=== PATIENT | male | born 1965 | race American Indian/Alaskan Native ===

== ENCOUNTER 2020-03-04 13:24 | Inpatient (IN) | payer OTHER ==
[2020-03-04] MEDS ORDERED: SODIUM CHLORIDE 0.9% 1000 ML 1,000 ML IV ONE ×2 (15:13→17:34)
[2020-03-04] MEDS ORDERED: ONDANSETRON 4 MG/2 ML INJ IV ONE (15:13)
[2020-03-04] MEDS ORDERED: MORPHINE 4 MG/1 ML INJ IV ONE (15:13)
--- NOTE | 2020-03-04 15:33 | Emergency Department Report ---
ED Abdominal Pain HPI - General Chief Complaint: Abdominal Pain Stated Complaint: JUAN JOSE Time Seen by Provider: 03/04/20 15:13 Source: patient Mode of arrival: Wheelchair Limitations: No Limitations - History of Present Illness Initial Comments: Patient is 54 years old male with history of previous multiple abdominal surgeries. Patient stated that he drink some kind of lie approximately 40 years ago and since then he started having abdominal problem. Patient stated that this time is different. He is complaining of diffuse abdominal pain sharp in nature with no radiation. Patient stated that he is nauseated but no vomiting. He stated that he had diarrhea today. Patient denied any fever or chills. MD Complaint: abdominal pain -: week(s) (3) Location: diffuse Radiation: none Migration to: no migration Severity: moderate Severity scale (0 -10): 6 Quality: sharp Consistency: constant - Related Data Allergies Allergy/AdvReac Type Severity Reaction Status Date / Time No Known Allergies Allergy Unverified 03/04/20 14:30 ED Review of Systems ROS: Stated complaint: JUAN JOSE Other details as noted in HPI Comment: All other systems reviewed and negative Constitutional: denies: chills, diaphoresis Respiratory: denies: cough, shortness of breath, SOB with exertion Cardiovascular: denies: chest pain, palpitations Gastrointestinal: abdominal pain, nausea, diarrhea. denies: vomiting, constipation, hematemesis, melena, hematochezia Musculoskeletal: denies: back pain Neurological: denies: headache, weakness, numbness, paresthesias, confusion ED Past Medical Hx - Past Medical History Previous Medical History?: Yes Additional medical history: DYSPHAGIA - Surgical History Past Surgical History?: Yes Additional Surgical History: ABD - Social History Smoking Status: Current Every Day Smoker Substance Use Type: Alcohol ED Physical Exam - General Limitations: No Limitations General appearance: alert, in no apparent distress - Head Head exam: Present: atraumatic, normocephalic, normal inspection - Eye Eye exam: Present: normal appearance - ENT ENT exam: Present: mucous membranes dry - Neck Neck exam: Present: normal inspection, full ROM. Absent: tenderness, meningismus, lymphadenopathy, thyromegaly - Respiratory Respiratory exam: Present: normal lung sounds bilaterally - Cardiovascular Cardiovascular Exam: Present: tachycardia - GI/Abdominal GI/Abdominal exam: Present: soft, distended, tenderness, diminished bowel sounds. Absent: guarding, rebound, rigid, organomegaly, mass, bruit, pulsatile mass, hernia - Extremities Exam Extremities exam: Present: normal inspection, full ROM, normal capillary refill. Absent: tenderness, pedal edema, calf tenderness - Back Exam Back exam: Present: normal inspection, full ROM. Absent: CVA tenderness (R), CVA tenderness (L) - Neurological Exam Neurological exam: Present: alert, oriented X3, CN II-XII intact - Psychiatric Psychiatric exam: Present: normal mood - Skin Skin exam: Present: warm, dry, intact ED Course Vital Signs 03/04/20 03/04/20 14:31 15:31 Temperature 98.8 F 100.2 F H Pulse Rate 121 H 119 H Respiratory 18 16 Rate Blood Pressure 95/73 Blood Pressure 107/77 [Left] O2 Sat by Pulse 93 95 Oximetry ED Medical Decision Making - Lab Data Result diagrams: 03/04/20 15:54 03/04/20 15:54 - Radiology Data Radiology results: report reviewed - Medical Decision Making Patient is 54 years old male with history of previous multiple abdominal surgeries. Patient stated that he drink some kind of lie approximately 40 years ago and since then he started having abdominal problem. Patient stated that this time is different. He is complaining of diffuse abdominal pain sharp in nature with no radiation. Patient stated that he is nauseated but no vomiting. He stated that he had diarrhea today. Patient denied any fever or chills. Labs reviewed and showed a potassium of 3 replaced with 20mEq potassium chloride IV. Patient received normal saline. Patient also received morphine and Zofran for pain and nausea. CT abdomen and pelvis with IV contrast showed a moderate small bowel obstruction most likely secondary to adhesion. I discussed the patient with Dr. Javed who advised to insert an NG tube and keep patient n.p.o. and will follow-up with the patient. I discussed the patient with Dr. Claros, he agreed to admit the patient to medical service for further management. Critical Care Time: Yes Critical care time in (mins) excluding proc time.: 30 Critical care attestation.: If time is entered above; I have spent that time in minutes in the direct care of this critically ill patient, excluding procedure time. ED Disposition Clinical Impression: Abdominal pain, Small bowel obstruction, Acute hypokalemia, Nausea Disposition: OP ADMIT IP TO THIS HOSP Is pt being admited?: Yes Condition: Stable
[2020-03-04] MEDS ORDERED: ACETAMINOPHEN 325 MG TAB PO ONE (15:58)
[2020-03-04 17:07] LABS: Hematocrit 35.2 % (35.5-45.6); Hemoglobin 12.2 gm/dl (11.8-15.2); Mean Corpuscular HGB Conc 35 % (32-34); Mean Corpuscular Volume 96 fl (84-94); Platelet Count 365 K/mm3 (140-440); Red Blood Count 3.65 M/mm3 (3.65-5.03); Red Cell Distribution Width 14.6 % (13.2-15.2)
[2020-03-04 17:32] LABS: Albumin 2.2 g/dL (3.9-5); Bilirubin,Direct 1.2 mg/dL (0-0.2); INR 1.11 (0.87-1.13)
--- NOTE | 2020-03-04 18:14 | Cat Scan Report ---
CT ABDOMEN AND PELVIS WITH CONTRAST INDICATION: abdominal pain. TECHNIQUE: Axial CT images were obtained through the abdomen and pelvis after 100 cc Omnipaque [address] scans at this location are performed using CT dose reduction for ALARA by means of automated exposure control. COMPARISON: None available. 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 LIVER: No significant abnormality. GALLBLADDER: No significant abnormality. BILE DUCTS: No significant abnormality. PANCREAS: No significant abnormality. SPLEEN: No significant abnormality. ADRENALS: No significant abnormality. RIGHT KIDNEY and URETER: No significant abnormality. LEFT KIDNEY and URETER: No significant abnormality. STOMACH and SMALL BOWEL: Moderately dilated fluid-filled loops of small bowel characteristic for dist al small bowel obstruction likely secondary to adhesions. COLON: No significant abnormality. APPENDIX: Not clearly visualized. PERITONEUM: No free fluid. No free air. No fluid collection. LYMPH NODES: No significant adenopathy. AORTA and ARTERIES: No significant abnormality. IVC and VEINS: No significant abnormality. URINARY BLADDER: No significant abnormality. REPRODUCTIVE ORGANS: No significant abnormality. ADDITIONAL FINDINGS: None. SKELETAL SYSTEM: No significant abnormality. IMPRESSION: 1. Moderate grade distal small bowel obstruction. 2. 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
[2020-03-04] MEDS: POTASSIUM CHLORIDE 10 MEQ 10 MEQ/100 ML BAG IV SCH ×2 (18:16→20:43)
--- NOTE | 2020-03-04 18:37 | History and Physical Report ---
History of Present Illness Chief complaint: My stomach hurts History of present illness: 54 YO Male with Nicotine Dependence, ETOH Dependence, Dysphagia presents to ED for evaluation. Patient states he has experienced abdominal pain over the past week 3 weeks with persistent symptoms over the same timeframe. Patient states that pain is 6/10, constant, diffuse, nonradiating, without exacerbating or alleviating factors. Patient acknowledges nausea and diminished oral intake. Patient transported to [facility] via private vehicle for further care and evaluation of the aforementioned symptoms. Patient seen and evaluated in the emergency department. Lab and imaging studies reviewed. Patient underwent CT scan of the abdomen and pelvis which revealed evidence of a small bowel obstruction. Patient also found to have acute kidney injury with acute tubular necrosis, hyponatremia, and hypokalemia. Surgical team consulted in ED. Patient underwent nasogastric tube placement in the emergency department. Patient nay keith in observation status and admitted to surgical floor for further care due to increased risk of worsening symptoms. No prior admission for review. No medication listed at time of admission for reconciliation. Past History Past Medical History: other (See HPI) Past Surgical History: bowel surgery Social history: smoking, alcohol abuse Family history: hypertension Medications and Allergies Allergies Allergy/AdvReac Type Severity Reaction Status Date / Time No Known Allergies Allergy Unverified 03/04/20 14:30 Active Meds: Active Medications Sodium Chloride (Nacl 0.9% 1000 Ml) 1,000 mls @ 999 mls/hr IV BOLUS ONE Stop: 03/04/20 18:34 Last Admin: 03/04/20 18:16 Dose: 999 mls/hr Documented by: Potassium Chloride (Kcl 10meq/100ml) 10 meq in 100 mls @ 100 mls/hr IV Q1H SANDIP Stop: 03/04/20 19:59 Last Admin: 03/04/20 18:16 Dose: 100 mls/hr Documented by: Review of Systems Constitutional: no weight loss, no weight gain, no fever, no chills Ears, nose, mouth and throat: no ear pain, no ear discharge, no tinnitis, no decreased hearing, no nose pain Cardiovascular: no chest pain, no orthopnea, no edema, no syncope Respiratory: no cough, no cough with sputum, no hemoptysis, no shortness of breath Gastrointestinal: abdominal pain, nausea, no vomiting, no diarrhea, no constipation Genitourinary Male: no hematuria, no flank pain, no urinary frequency, no urinary hesitancy, no nocturia Rectal: no pain, no incontinence, no bleeding Musculoskeletal: no neck pain, no arm numbness/tingling, no shooting leg pain Integumentary: no rash, no pruritis, no redness, no wounds, no blisters Neurological: no head injury, no paralysis, no parathesias, no tingling, no seizures (Resolved 0.0 on overall lactulose state) Psychiatric: no anxiety, no change in sleep habits, no insomnia, no change in libido, no suicidal ideation, no disorientation Endocrine: no cold intolerance, no polyphagia, no nocturia, no excessive sweating Hematologic/Lymphatic: no easy bruising Allergic/Immunologic: no wheezing Exam - Constitutional Vitals: Temp Pulse Resp BP Pulse Ox 100.2 F H 119 H 16 107/77 95 03/04/20 15:31 03/04/20 15:31 03/04/20 15:31 03/04/20 15:31 03/04/20 15:31 General appearance: Present: mild distress - EENT Eyes: Present: PERRL ENT: hearing intact, clear oral mucosa - Neck Neck: Present: supple, normal ROM - Respiratory Respiratory effort: normal Respiratory: bilateral: CTA - Cardiovascular Heart Sounds: Present: S1 & S2. Absent: rub, click - Extremities Extremities: pulses symmetrical, No edema Peripheral Pulses: within normal limits - Abdominal General gastrointestinal: Present: soft, distended, normal bowel sounds Male genitourinary: Present: normal - Integumentary Integumentary: Present: clear, warm, dry - Musculoskeletal Musculoskeletal: gait normal, strength equal bilaterally - Psychiatric Psychiatric: appropriate mood/affect, intact judgment & insight - Neurologic Neurologic: CNII-XII intact, moves all extremities Results - Labs CBC & Chem 7: 03/04/20 15:54 03/04/20 15:54 Labs: Abnormal lab results 03/04/20 03/04/20 Range/Units 15:54 15:54 Hct 35.2 L (35.5-45.6) % MCV 96 H (84-94) fl MCH 33 H (28-32) pg MCHC 35 H (32-34) % Sodium 131 L (137-145) mmol/L Potassium 3.0 L (3.6-5.0) mmol/L Chloride 81.7 L (98-107) mmol/L Carbon Dioxide 32 H (22-30) mmol/L BUN 47 H (9-20) mg/dL Creatinine 1.5 H (0.8-1.3) mg/dL Glucose 123 H (75-100) mg/dL Calcium 8.0 L (8.4-10.2) mg/dL Total Bilirubin 1.80 H (0.1-1.2) mg/dL Direct Bilirubin 1.2 H (0-0.2) mg/dL Albumin 2.2 L (3.9-5) g/dL Assessment and Plan - Patient Problems (1) EMERITA (acute kidney injury) Current Visit: Yes Status: Acute Plan to address problem: IVF resuscitation therapy, monitor uop q shift, repeat bmp in am to monitor serum creatnine (2) Small bowel obstruction Current Visit: Yes Status: Acute Plan to address problem: NGT to LWIS, Surgery consulted, CT Abdomen/Pelvis, Surgery team consulted in ED, serial physical exam. (3) Hypokalemia Current Visit: Yes Status: Acute Plan to address problem: repleted in ED, (4) Hyponatremia syndrome Current Visit: Yes Status: Acute Plan to address problem: IVF resuscitation therapy, repeat bmp in am. (5) DVT prophylaxis Current Visit: Yes Status: Acute Plan to address problem: SCD to BLE while in bed, Pt is ambulatory
[2020-03-04] MEDS ORDERED: ACETAMINOPHEN 325 MG TAB PO PRN (18:41)
[2020-03-04] MEDS ORDERED: ONDANSETRON 4 MG/2 ML INJ IV PRN (18:41)
[2020-03-04] MEDS ORDERED: PIPERACILLIN/TAZOBACTAM 3.375 3.375 GM/50 ML BAG IV ONE ×2 (18:46→20:41)
[2020-03-04 20:36] LABS: Bilirubin,Urine SM (Negative); Blood,Urine NEG (Negative); Color,Urine Amber (Yellow); Hyaline Casts,Urine 1 /LPF; Mucus,Urine FEW /HPF; Protein,Urine <15 mg/dL mg/dL (Negative)
[2020-03-04 20:37] LABS: Ictotest,Urine Negative (Negative)
[2020-03-04 20:40] LABS: Basophils % (Manual) 0 % (0.0-1.8); Total Cells Counted 100
[2020-03-04 20:41] LABS: Platelet Estimate Consistent w Auto; Toxic Vacuolation 1+
[2020-03-04] MEDS ORDERED: POTASSIUM CHLORIDE 10 MEQ 10 MEQ/100 ML BAG IV ONE (20:41)
--- NOTE | 2020-03-04 21:21 | XRay Report ---
ABDOMEN 1 VIEW(S) INDICATION / CLINICAL INFORMATION: NG placement. COMPARISON: CT abdomen/pelvis from today FINDINGS: TUBES / LINES: NG tube projects right of midline where the patient has a Morgagni hernia. The tube is then kinked with tip directed cranially. Recommend removing the tube and repositioning along the eso phagus. The tube is not definitely within the esophageal lumen. BOWEL GAS PATTERN: No significant abnormality. FREE AIR / EXTRALUMINAL GAS: None seen. ADDITIONAL FINDINGS: No significant additional findings. IMPRESSION: 1. Abnormal position of the NG tube as above. COMMUNICATION: Time of Communication ([employer]/CDT): 2012 Licensed Practitioner Receiving Report: Dr. Darden Signer Name: Krzysztof Glasgow MD Signed: 03/04/2020 9:17 PM Workstation Name: [id number]
[2020-03-05] MEDS: MORPHINE 2 MG/1 ML INJ IV PRN (04:28)
[2020-03-05 05:35] LABS: BUN/Creatinine Ratio 41; Blood Urea Nitrogen 41 mg/dL (9-20); Calcium 7.6 mg/dL (8.4-10.2); Hemolysis Index 6
[2020-03-05] MEDS: SODIUM CHLORIDE 0.9% 1000 ML 1,000 ML IV SCH ×3 (07:34→12:45)
--- NOTE | 2020-03-05 08:30 | Consultation ---
History of Present Illness Consult date: 03/05/20 Reason for consult: abdominal pain Requesting physician: STEFAN PROCTOR Chief complaint: abdominal pain and poor appetite - History of present illness History of present illness: 54yo M presented to the emergency department with abdominal pain and nausea. This is been going on for possibly 2 weeks. He thought it would pass. Denies any fevers or chills. He has never had anything like this before. CT evaluation suggested small bowel obstruction. General surgery was consulted. Patient reports that at the age of 5, he accidentally drank lye. That caused a caustic injury of the esophagus. He believes he had an esophageal resection as well as reconstruction. He is not sure exactly what was brought up to replace the portion of the esophagus that was removed. He has had no other surgery since that time. He has not had any prior history of bowel obstructions. He reports that his pain is significantly improved. His last bowel movement was yesterday prior to coming to the hospital. Denies any chest pain, shortness of breath, difficulty breathing. Past History Past Medical History: other (See HPI) Past Surgical History: bowel surgery Social history: smoking (1ppd), alcohol abuse (occasional - not daily use) Family history: hypertension Medications and Allergies Allergies Allergy/AdvReac Type Severity Reaction Status Date / Time No Known Allergies Allergy Unverified 03/04/20 14:30 Active Meds: Active Medications Acetaminophen (Tylenol) 650 mg PO Q4H PRN PRN Reason: Pain MILD(1-3)/Fever >100.5/[facility] Sodium Chloride (Nacl 0.9% 1000 Ml) 1,000 mls @ 125 mls/hr IV DIRECT [facility] Last Admin: 03/05/20 07:34 Dose: 125 mls/hr Documented by: Morphine Sulfate (Morphine) 2 mg IV Q4H PRN PRN Reason: Pain, Moderate (4-6) Last Admin: 03/05/20 04:28 Dose: 2 mg Documented by: Ondansetron HCl (Zofran) 4 mg IV Q8H PRN PRN Reason: Nausea And Vomiting Last Admin: 03/05/20 04:29 Dose: 4 mg Documented by: Sodium Chloride (Sodium Chloride Flush Syringe 10 Ml) 10 ml IV BID SANDIP Last Admin: 03/04/20 22:00 Dose: 10 ml Documented by: Sodium Chloride (Sodium Chloride Flush Syringe 10 Ml) 10 ml IV PRN PRN PRN Reason: LINE FLUSH Review of Systems - Constitutional no fever, no chills, no chronic pain - Cardiovascular no chest pain, no shortness of breath - Respiratory no cough - Gastrointestinal abdominal pain, nausea, loss of appetite, dyspepsia/bloating, no vomiting - Muskuloskeletal no low back pain - Integumentary no rash, no sores, no wounds Exam Vital Signs Temp Pulse Resp BP Pulse Ox 98.8 F 121 H 18 95/73 93 03/04/20 14:31 03/04/20 14:31 03/04/20 14:31 03/04/20 14:31 03/04/20 14:31 - General physical appearance Positive: no distress, no pain, other (pleasant) - Eyes Positive: normal occular movement. Negative: icteric - Respiratory Positive: normal expansion, normal respiratory effort - Cardiovascular Rhythm: regular - Abdomen Abdomen: Present: soft, tender (Primarily in the lower abdomen and left side.), bowel sounds hypoactive, distended, surgical scars (well healed midline scar). Absent: guarding, rigid, wound - Integumentary no rash, no growths, no abnormal pigmentation - Neurologic Neurologic: alert and oriented to time, place and person, motor strength and sensation are grossly intact - Psychiatric Psychiatric: appropriate mood/affect, intact judgment & insight, cooperative Results - Labs 03/04/20 15:54 03/05/20 05:02 Abnormal lab results 03/04/20 03/04/20 03/05/20 Range/Units 15:54 15:54 05:02 Hct 35.2 L (35.5-45.6) % MCV 96 H (84-94) fl MCH 33 H (28-32) pg MCHC 35 H (32-34) % Seg Neuts % (Manual) 76.0 H (40.0-70.0) % Lymphocytes % (Manual) 13.0 L (13.4-35.0) % Monocytes % (Manual) 10.0 H (0.0-7.3) % Monocytes # (Manual) 1.0 H (0.0-0.8) K/mm3 Sodium 131 L 135 L (137-145) mmol/L Potassium 3.0 L 3.1 L (3.6-5.0) mmol/L Chloride 81.7 L 89.7 L (98-107) mmol/L Carbon Dioxide 32 H (22-30) mmol/L BUN 47 H 41 H (9-20) mg/dL Creatinine 1.5 H (0.8-1.3) mg/dL Glucose 123 H (75-100) mg/dL Calcium 8.0 L 7.6 L (8.4-10.2) mg/dL Total Bilirubin 1.80 H (0.1-1.2) mg/dL Direct Bilirubin 1.2 H (0-0.2) mg/dL Albumin 2.2 L (3.9-5) g/dL Diabetes panel 03/04/20 03/05/20 Range/Units 15:54 05:02 Sodium 131 L 135 L (137-145) mmol/L Potassium 3.0 L 3.1 L (3.6-5.0) mmol/L Chloride 81.7 L 89.7 L (98-107) mmol/L Carbon Dioxide 32 H 29 (22-30) mmol/L BUN 47 H 41 H (9-20) mg/dL Creatinine 1.5 H 1.0 (0.8-1.3) mg/dL Glucose 123 H 89 (75-100) mg/dL Calcium 8.0 L 7.6 L (8.4-10.2) mg/dL AST 15 (5-40) units/L ALT 8 (7-56) units/L Alkaline Phosphatase 89 (35-129) units/L Total Protein 6.8 (6.3-8.2) g/dL Albumin 2.2 L (3.9-5) g/dL Calcium panel 03/04/20 03/05/20 Range/Units 15:54 05:02 Calcium 8.0 L 7.6 L (8.4-10.2) mg/dL Albumin 2.2 L (3.9-5) g/dL Pituitary panel 03/04/20 03/05/20 Range/Units 15:54 05:02 Sodium 131 L 135 L (137-145) mmol/L Potassium 3.0 L 3.1 L (3.6-5.0) mmol/L Chloride 81.7 L 89.7 L (98-107) mmol/L Carbon Dioxide 32 H 29 (22-30) mmol/L BUN 47 H 41 H (9-20) mg/dL Creatinine 1.5 H 1.0 (0.8-1.3) mg/dL Glucose 123 H 89 (75-100) mg/dL Calcium 8.0 L 7.6 L (8.4-10.2) mg/dL Adrenal panel 03/04/20 03/05/20 Range/Units 15:54 05:02 Sodium 131 L 135 L (137-145) mmol/L Potassium 3.0 L 3.1 L (3.6-5.0) mmol/L Chloride 81.7 L 89.7 L (98-107) mmol/L Carbon Dioxide 32 H 29 (22-30) mmol/L BUN 47 H 41 H (9-20) mg/dL Creatinine 1.5 H 1.0 (0.8-1.3) mg/dL Glucose 123 H 89 (75-100) mg/dL Calcium 8.0 L 7.6 L (8.4-10.2) mg/dL Total Bilirubin 1.80 H (0.1-1.2) mg/dL AST 15 (5-40) units/L ALT 8 (7-56) units/L Alkaline Phosphatase 89 (35-129) units/L Total Protein 6.8 (6.3-8.2) g/dL Albumin 2.2 L (3.9-5) g/dL - Imaging Abdominal x-ray: report reviewed, image reviewed CT scan - abdomen: report reviewed, image reviewed CT scan - pelvis: report reviewed, image reviewed Assessment and Plan - Patient Problems (1) Small bowel obstruction Current Visit: Yes Status: Acute Plan to address problem: Pt stable. This is most likely secondary to adhesions. Appears hemodynamically stable at this time. Pain is better. Still requires resuscitation. Additional fluids have been ordered for this morning. We will continue conservative management for now. This may take longer than usual to resolve as it may have been going on for at least 2 weeks per the patient's report. If he declines, we will move forward with exploratory laparotomy. This was explained to patient and he understood. XR ordered for AM. We will follow along. Please call with any questions. Time=30min
--- NOTE | 2020-03-05 13:38 | Progress Note ---
Assessment and Plan - Patient Problems (1) EMERITA (acute kidney injury) Current Visit: Yes Status: Acute Plan to address problem: IVF resuscitation therapy, monitor uop q shift, repeat bmp in am to monitor serum creatnine (2) Small bowel obstruction Current Visit: Yes Status: Acute Plan to address problem: NGT to LWIS, Surgery consulted, CT Abdomen/Pelvis, Surgery team consulted in ED, serial physical exam. (3) Hypokalemia Current Visit: Yes Status: Acute Plan to address problem: repleted in ED, (4) Hyponatremia syndrome Current Visit: Yes Status: Acute Plan to address problem: IVF resuscitation therapy, repeat bmp in am. (5) DVT prophylaxis Current Visit: Yes Status: Acute Plan to address problem: SCD to BLE while in bed, Pt is ambulatory History Interval history: 54 YO Male HD #2 with SBO, EMERITA, ETOH Dependence. Patient denies flatus, patient denies bowel movement. Patient denies worsening symptoms. Patient knowledges feeling uncomfortable. Patient denies fever, chills, chest pain, palpitations, shortness of breath. No reported nursing events. NG tube to low wall intermittent suction. Hospitalist Physical - Constitutional Vitals: Temp Pulse Resp BP Pulse Ox 99.7 F H 109 H 19 110/66 91 03/05/20 11:25 03/05/20 11:25 03/05/20 11:25 03/05/20 11:25 03/05/20 11:25 General appearance: Present: mild distress - EENT Eyes: Present: PERRL, EOM intact ENT: hearing intact - Neck Neck: Present: supple - Respiratory Respiratory effort: labored Respiratory: bilateral: CTA - Cardiovascular Rhythm: regular Heart Sounds: Present: S1 & S2 - Extremities Extremities: no ischemia Peripheral Pulses: within normal limits - Abdominal General gastrointestinal: soft, non-tender, normal bowel sounds, other (Mild distention. Decreased since previous exam) - Integumentary Integumentary: Present: clear, warm, dry - Psychiatric Psychiatric: appropriate mood/affect, cooperative - Neurologic Neurologic: CNII-XII intact Results - Labs CBC & Chem 7: 03/04/20 15:54 03/05/20 05:02 Labs: Laboratory Last Values WBC 9.5 K/mm3 (4.5-11.0) 03/04/20 15:54 RBC 3.65 M/mm3 (3.65-5.03) 03/04/20 15:54 Hgb 12.2 gm/dl (11.8-15.2) 03/04/20 15:54 Hct 35.2 % (35.5-45.6) L 03/04/20 15:54 MCV 96 fl (84-94) H 03/04/20 15:54 MCH 33 pg (28-32) H 03/04/20 15:54 MCHC 35 % (32-34) H 03/04/20 15:54 RDW 14.6 % (13.2-15.2) 03/04/20 15:54 Plt Count 365 K/mm3 (140-440) 03/04/20 15:54 Add Manual Diff Complete 03/04/20 15:54 Total Counted 100 03/04/20 15:54 Seg Neuts % (Manual) 76.0 % (40.0-70.0) H 03/04/20 15:54 Band Neutrophils % 0 % 03/04/20 15:54 Lymphocytes % (Manual) 13.0 % (13.4-35.0) L 03/04/20 15:54 Reactive Lymphs % (Man) 0 % 03/04/20 15:54 Monocytes % (Manual) 10.0 % (0.0-7.3) H 03/04/20 15:54 Eosinophils % (Manual) 1.0 % (0.0-4.3) 03/04/20 15:54 Basophils % (Manual) 0 % (0.0-1.8) 03/04/20 15:54 Metamyelocytes % 0 % 03/04/20 15:54 Myelocytes % 0 % 03/04/20 15:54 Promyelocytes % 0 % 03/04/20 15:54 Blast Cells % 0 % 03/04/20 15:54 Nucleated RBC % Not Reportable 03/04/20 15:54 Seg Neutrophils # Man 7.2 K/mm3 (1.8-7.7) 03/04/20 15:54 Band Neutrophils # 0.0 K/mm3 03/04/20 15:54 Lymphocytes # (Manual) 1.2 K/mm3 (1.2-5.4) 03/04/20 15:54 Abs React Lymphs (Man) 0.0 K/mm3 03/04/20 15:54 Monocytes # (Manual) 1.0 K/mm3 (0.0-0.8) H 03/04/20 15:54 Eosinophils # (Manual) 0.1 K/mm3 (0.0-0.4) 03/04/20 15:54 Basophils # (Manual) 0.0 K/mm3 (0.0-0.1) 03/04/20 15:54 Metamyelocytes # 0.0 K/mm3 03/04/20 15:54 Myelocytes # 0.0 K/mm3 03/04/20 15:54 Promyelocytes # 0.0 K/mm3 03/04/20 15:54 Blast Cells # 0.0 K/mm3 03/04/20 15:54 WBC Morphology Not Reportable 03/04/20 15:54 Hypersegmented Neuts Not Reportable 03/04/20 15:54 Hyposegmented Neuts Not Reportable 03/04/20 15:54 Hypogranular Neuts Not Reportable 03/04/20 15:54 Smudge Cells Not Reportable 03/04/20 15:54 Toxic Granulation Not Reportable 03/04/20 15:54 Toxic Vacuolation 1+ 03/04/20 15:54 Dohle Bodies Not Reportable 03/04/20 15:54 Pelger-Huet Anomaly Not Reportable 03/04/20 15:54 Dl Rods Not Reportable 03/04/20 15:54 Platelet Estimate Consistent w auto 03/04/20 15:54 Clumped Platelets Not Reportable 03/04/20 15:54 Plt Clumps, EDTA Not Reportable 03/04/20 15:54 Large Platelets Not Reportable 03/04/20 15:54 Giant Platelets Not Reportable 03/04/20 15:54 Platelet Satelliting Not Reportable 03/04/20 15:54 Plt Morphology Comment Not Reportable 03/04/20 15:54 RBC Morphology Not Reportable 03/04/20 15:54 Dimorphic RBCs Not Reportable 03/04/20 15:54 Polychromasia Not Reportable 03/04/20 15:54 Hypochromasia Not Reportable 03/04/20 15:54 Poikilocytosis Not Reportable 03/04/20 15:54 Anisocytosis Not Reportable 03/04/20 15:54 Microcytosis Not Reportable 03/04/20 15:54 Macrocytosis Not Reportable 03/04/20 15:54 Spherocytes Not Reportable 03/04/20 15:54 Pappenheimer Bodies Not Reportable 03/04/20 15:54 Sickle Cells Not Reportable 03/04/20 15:54 Target Cells Not Reportable 03/04/20 15:54 Tear Drop Cells Not Reportable 03/04/20 15:54 Ovalocytes Not Reportable 03/04/20 15:54 Helmet Cells Not Reportable 03/04/20 15:54 Chau-[place] Bodies Not Reportable 03/04/20 15:54 [place] Rings Not Reportable 03/04/20 15:54 [place] Cells Not Reportable 03/04/20 15:54 Bite Cells Not Reportable 03/04/20 15:54 Crenated Cell Not Reportable 03/04/20 15:54 Elliptocytes Not Reportable 03/04/20 15:54 Acanthocytes (Spur) Not Reportable 03/04/20 15:54 Rouleaux Not Reportable 03/04/20 15:54 Hemoglobin C Crystals Not Reportable 03/04/20 15:54 Schistocytes Not Reportable 03/04/20 15:54 Malaria parasites Not Reportable 03/04/20 15:54 Hood Bodies Not Reportable 03/04/20 15:54 Hem Pathologist Commnt No 03/04/20 15:54 PT 14.4 Sec. (12.2-14.9) 03/04/20 15:54 INR 1.11 (0.87-1.13) 03/04/20 15:54 Sodium 135 mmol/L (137-145) L 03/05/20 05:02 Potassium 3.1 mmol/L (3.6-5.0) L 03/05/20 05:02 Chloride 89.7 mmol/L (98-107) L 03/05/20 05:02 Carbon Dioxide 29 mmol/L (22-30) 03/05/20 05:02 Anion Gap 19 mmol/L 03/05/20 05:02 BUN 41 mg/dL (9-20) H 03/05/20 05:02 Creatinine 1.0 mg/dL (0.8-1.3) 03/05/20 05:02 Estimated GFR > 60 ml/min 03/05/20 05:02 BUN/Creatinine Ratio 41 % 03/05/20 05:02 Glucose 89 mg/dL (75-100) 03/05/20 05:02 Calcium 7.6 mg/dL (8.4-10.2) L 03/05/20 05:02 Total Bilirubin 1.80 mg/dL (0.1-1.2) H 03/04/20 15:54 Direct Bilirubin 1.2 mg/dL (0-0.2) H 03/04/20 15:54 Indirect Bilirubin 0.6 mg/dL 03/04/20 15:54 AST 15 units/L (5-40) 03/04/20 15:54 ALT 8 units/L (7-56) 03/04/20 15:54 Alkaline Phosphatase 89 units/L (35-129) 03/04/20 15:54 Total Protein 6.8 g/dL (6.3-8.2) 03/04/20 15:54 Albumin 2.2 g/dL (3.9-5) L 03/04/20 15:54 Albumin/Globulin Ratio 0.5 % 03/04/20 15:54 Lipase 40 units/L (13-60) 03/04/20 15:54 Urine Color Letty (Yellow) 03/04/20 Unknown Urine Turbidity Clear (Clear) 03/04/20 Unknown Urine pH 5.0 (5.0-7.0) 03/04/20 Unknown Ur Specific [place] 1.024 (1.003-1.030) 03/04/20 Unknown Urine Protein <15 mg/dl mg/dL (Negative) 03/04/20 Unknown Urine Glucose (UA) Neg mg/dL (Negative) 03/04/20 Unknown Urine Ketones Neg mg/dL (Negative) 03/04/20 Unknown Urine Blood Neg (Negative) 03/04/20 Unknown Urine Nitrite Neg (Negative) 03/04/20 Unknown Urine Bilirubin Sm (Negative) 03/04/20 Unknown Urine Ictotest Negative (Negative) 03/04/20 Unknown Urine Urobilinogen 4.0 mg/dL (<2.0) 03/04/20 Unknown Ur Leukocyte Esterase Neg (Negative) 03/04/20 Unknown Urine WBC (Auto) 6.0 /HPF (0.0-6.0) 03/04/20 Unknown Urine RBC (Auto) 5.0 /HPF (0.0-6.0) 03/04/20 Unknown U Epithel Cells (Auto) 2.0 /HPF (0-13.0) 03/04/20 Unknown Hyaline Casts 1 /LPF 03/04/20 Unknown Urine Mucus Few /HPF 03/04/20 Unknown Microbiology: Microbiology 03/04/20 18:59 Peripheral/Venous Blood Culture - Preliminary Culture in Progress 03/04/20 18:59 Peripheral/Venous Blood Culture - Preliminary Culture in Progress Sim/IV: Voiding Method Urinal IV Catheter Type [Right Peripheral IV Forearm] IV Catheter Type [Right Peripheral IV Antecubital] Active Medications - Current Medications Current Medications: Generic Name Dose Route Start Last Admin Trade Name Freq PRN Reason Stop Dose Admin Acetaminophen 650 mg 03/04/20 18:41 Tylenol PO Q4H PRN Pain MILD(1-3)/Fever >100.5/WAHL Sodium Chloride 1,000 mls @ 125 mls/hr 03/04/20 18:45 03/05/20 07:34 Nacl 0.9% 1000 Ml IV 125 mls/hr DIRECT SANDIP Administration Sodium Chloride 1,000 mls @ 999 mls/hr 03/05/20 10:30 03/05/20 12:45 Nacl 0.9% 1000 Ml IV 03/06/20 11:31 999 mls/hr ONCE SANDIP Administration As Directed Morphine Sulfate 2 mg 03/04/20 23:52 03/05/20 04:28 Morphine IV 2 mg Q4H PRN Administration Pain, Moderate (4-6) Ondansetron HCl 4 mg 03/04/20 18:41 03/05/20 04:29 Zofran IV 4 mg Q8H PRN Administration Nausea And Vomiting Sodium Chloride 10 ml 03/04/20 22:00 03/05/20 09:31 Sodium Chloride Flush Syringe 10 Ml IV 10 ml BID SANDIP Administration Sodium Chloride 10 ml 03/04/20 18:41 Sodium Chloride Flush Syringe 10 Ml IV PRN PRN LINE FLUSH
[2020-03-06] MEDS: SODIUM CHLORIDE 0.9% 1000 ML 1,000 ML IV SCH (03:31)
--- NOTE | 2020-03-06 08:47 | Progress Note ---
Assessment and Plan - Patient Problems (1) Small bowel obstruction Current Visit: Yes Status: Acute Plan to address problem: Pt stable. Patient is clinically improved. He appears to be resolving his bowel obstruction with a very large bowel movement and has passed gas multiple times. The x-ray still shows dilated small bowel but this may take a while to resolve as this process was going on for about 2 weeks. His abdomen is much improved compared to yesterday. He has no tenderness now. I discussed options with the patient. He would like to have a trial of clear liquids. We will keep the NG tube but clamp it as a backup. XR ordered for AM. We will follow along. Please call with any questions. Time=10min Subjective Date of service: 03/06/20 Patient Reports: Positive: feels better, pain is less (pain only with NGT now.), flatus, bowel movement. Negative: nausea, vomiting Objective Vital Signs - 12hr 03/05/20 03/06/20 22:51 06:25 Temperature 98.4 F 100.1 F H Pulse Rate 107 H 107 H Respiratory 18 18 Rate Blood Pressure 124/76 Blood Pressure 121/74 [Left] O2 Sat by Pulse 94 95 Oximetry - General physical appearance no distress, no pain, other (looks more comfortable) - ENT other (NGT - gastric appearing fluid in tubing) - Respiratory normal expansion, normal respiratory effort - Abdomen soft, not tender, bowel sounds normal, distended (mild), not rebound, not guarding, not rigid - Integumentary no rash, no growths, no abnormal pigmentation - Psychiatric oriented to time, oriented to person, oriented to place, speech is normal, memory intact - Labs 03/04/20 15:54 03/05/20 05:02 - Imaging Abdominal x-ray: image reviewed
--- NOTE | 2020-03-06 09:05 | XRay Report ---
ABDOMEN 2 VIEWS INDICATION / CLINICAL INFORMATION: SBO. COMPARISON: None available. FINDINGS: TUBES / LINES: Partially visualized NG tube appears to be within the right mainstem bronchus. BOWEL GAS PATTERN: Dilated loops of small bowel measure 5 cm in greatest cross-sectional diameter. No bowel gas is noted within the rectal vault. FREE AIR / EXTRALUMINAL GAS: None seen. ADDITIONAL FINDINGS: No significant additional findings. CHEST: Visualized chest shows no significant abnormality. IMPRESSION: 1. Findings consistent with mechanical bowel obstruction. 2. Malpositioned NG tube within the right mainstem bronchus. Signer Name: Timi Benito MD Signed: 03/06/2020 9:01 AM Workstation Name: [id number]
--- NOTE | 2020-03-06 15:06 | Progress Note ---
Assessment and Plan - Patient Problems (1) EMERITA (acute kidney injury) Current Visit: Yes Status: Acute Plan to address problem: IVF resuscitation therapy, monitor uop q shift, repeat bmp in am to monitor serum creatnine (2) Small bowel obstruction Current Visit: Yes Status: Acute Plan to address problem: NGT to LWIS, Surgery consulted, CT Abdomen/Pelvis reviewed, serial physical exam, patient symptoms are improving. Advance diet as tolerated. A.m abdominal x-ray. (3) Hypokalemia Current Visit: Yes Status: Acute Plan to address problem: repleted in ED, (4) Hyponatremia syndrome Current Visit: Yes Status: Acute Plan to address problem: IVF resuscitation therapy, repeat bmp in am. (5) DVT prophylaxis Current Visit: Yes Status: Acute Plan to address problem: SCD to BLE while in bed, Pt is ambulatory History Interval history: 54 YO Male HD #3 with SBO, EMERITA, ETOH Dependence. Patient acknowledges flatus, patient acknnowledges bowel movement. Patient denies worsening symptoms. Patient acknowledges feeling more comfortable today. Patient denies fever, chills, chest pain, palpitations, shortness of breath. No reported nursing events. NG tube to low wall intermittent suction. Hospitalist Physical - Constitutional Vitals: Temp Pulse Resp BP Pulse Ox 98.5 F 104 H 18 126/82 95 03/06/20 10:42 03/06/20 10:42 03/06/20 10:42 03/06/20 10:42 03/06/20 10:42 General appearance: Present: mild distress - EENT Eyes: Present: PERRL, EOM intact ENT: hearing intact - Neck Neck: Present: supple - Respiratory Respiratory: bilateral: CTA - Cardiovascular Rhythm: regular Heart Sounds: Present: S1 & S2 - Extremities Extremities: no ischemia Peripheral Pulses: within normal limits - Abdominal General gastrointestinal: soft, non-tender, non-distended - Integumentary Integumentary: Present: clear, warm, dry - Psychiatric Psychiatric: appropriate mood/affect, cooperative - Neurologic Neurologic: CNII-XII intact Results - Labs CBC & Chem 7: 03/04/20 15:54 03/05/20 05:02 Labs: Laboratory Last Values WBC 9.5 K/mm3 (4.5-11.0) 03/04/20 15:54 RBC 3.65 M/mm3 (3.65-5.03) 03/04/20 15:54 Hgb 12.2 gm/dl (11.8-15.2) 03/04/20 15:54 Hct 35.2 % (35.5-45.6) L 03/04/20 15:54 MCV 96 fl (84-94) H 03/04/20 15:54 MCH 33 pg (28-32) H 03/04/20 15:54 MCHC 35 % (32-34) H 03/04/20 15:54 RDW 14.6 % (13.2-15.2) 03/04/20 15:54 Plt Count 365 K/mm3 (140-440) 03/04/20 15:54 Add Manual Diff Complete 03/04/20 15:54 Total Counted 100 03/04/20 15:54 Seg Neuts % (Manual) 76.0 % (40.0-70.0) H 03/04/20 15:54 Band Neutrophils % 0 % 03/04/20 15:54 Lymphocytes % (Manual) 13.0 % (13.4-35.0) L 03/04/20 15:54 Reactive Lymphs % (Man) 0 % 03/04/20 15:54 Monocytes % (Manual) 10.0 % (0.0-7.3) H 03/04/20 15:54 Eosinophils % (Manual) 1.0 % (0.0-4.3) 03/04/20 15:54 Basophils % (Manual) 0 % (0.0-1.8) 03/04/20 15:54 Metamyelocytes % 0 % 03/04/20 15:54 Myelocytes % 0 % 03/04/20 15:54 Promyelocytes % 0 % 03/04/20 15:54 Blast Cells % 0 % 03/04/20 15:54 Nucleated RBC % Not Reportable 03/04/20 15:54 Seg Neutrophils # Man 7.2 K/mm3 (1.8-7.7) 03/04/20 15:54 Band Neutrophils # 0.0 K/mm3 03/04/20 15:54 Lymphocytes # (Manual) 1.2 K/mm3 (1.2-5.4) 03/04/20 15:54 Abs React Lymphs (Man) 0.0 K/mm3 03/04/20 15:54 Monocytes # (Manual) 1.0 K/mm3 (0.0-0.8) H 03/04/20 15:54 Eosinophils # (Manual) 0.1 K/mm3 (0.0-0.4) 03/04/20 15:54 Basophils # (Manual) 0.0 K/mm3 (0.0-0.1) 03/04/20 15:54 Metamyelocytes # 0.0 K/mm3 03/04/20 15:54 Myelocytes # 0.0 K/mm3 03/04/20 15:54 Promyelocytes # 0.0 K/mm3 03/04/20 15:54 Blast Cells # 0.0 K/mm3 03/04/20 15:54 WBC Morphology Not Reportable 03/04/20 15:54 Hypersegmented Neuts Not Reportable 03/04/20 15:54 Hyposegmented Neuts Not Reportable 03/04/20 15:54 Hypogranular Neuts Not Reportable 03/04/20 15:54 Smudge Cells Not Reportable 03/04/20 15:54 Toxic Granulation Not Reportable 03/04/20 15:54 Toxic Vacuolation 1+ 03/04/20 15:54 Dohle Bodies Not Reportable 03/04/20 15:54 Pelger-Huet Anomaly Not Reportable 03/04/20 15:54 Dl Rods Not Reportable 03/04/20 15:54 Platelet Estimate Consistent w auto 03/04/20 15:54 Clumped Platelets Not Reportable 03/04/20 15:54 Plt Clumps, EDTA Not Reportable 03/04/20 15:54 Large Platelets Not Reportable 03/04/20 15:54 Giant Platelets Not Reportable 03/04/20 15:54 Platelet Satelliting Not Reportable 03/04/20 15:54 Plt Morphology Comment Not Reportable 03/04/20 15:54 RBC Morphology Not Reportable 03/04/20 15:54 Dimorphic RBCs Not Reportable 03/04/20 15:54 Polychromasia Not Reportable 03/04/20 15:54 Hypochromasia Not Reportable 03/04/20 15:54 Poikilocytosis Not Reportable 03/04/20 15:54 Anisocytosis Not Reportable 03/04/20 15:54 Microcytosis Not Reportable 03/04/20 15:54 Macrocytosis Not Reportable 03/04/20 15:54 Spherocytes Not Reportable 03/04/20 15:54 Pappenheimer Bodies Not Reportable 03/04/20 15:54 Sickle Cells Not Reportable 03/04/20 15:54 Target Cells Not Reportable 03/04/20 15:54 Tear Drop Cells Not Reportable 03/04/20 15:54 Ovalocytes Not Reportable 03/04/20 15:54 Helmet Cells Not Reportable 03/04/20 15:54 Chau-[place] Bodies Not Reportable 03/04/20 15:54 [place] Rings Not Reportable 03/04/20 15:54 [place] Cells Not Reportable 03/04/20 15:54 Bite Cells Not Reportable 03/04/20 15:54 Crenated Cell Not Reportable 03/04/20 15:54 Elliptocytes Not Reportable 03/04/20 15:54 Acanthocytes (Spur) Not Reportable 03/04/20 15:54 Rouleaux Not Reportable 03/04/20 15:54 Hemoglobin C Crystals Not Reportable 03/04/20 15:54 Schistocytes Not Reportable 03/04/20 15:54 Malaria parasites Not Reportable 03/04/20 15:54 [place] Bodies Not Reportable 03/04/20 15:54 Hem Pathologist Commnt No 03/04/20 15:54 PT 14.4 Sec. (12.2-14.9) 03/04/20 15:54 INR 1.11 (0.87-1.13) 03/04/20 15:54 Sodium 135 mmol/L (137-145) L 03/05/20 05:02 Potassium 3.1 mmol/L (3.6-5.0) L 03/05/20 05:02 Chloride 89.7 mmol/L (98-107) L 03/05/20 05:02 Carbon Dioxide 29 mmol/L (22-30) 03/05/20 05:02 Anion Gap 19 mmol/L 03/05/20 05:02 BUN 41 mg/dL (9-20) H 03/05/20 05:02 Creatinine 1.0 mg/dL (0.8-1.3) 03/05/20 05:02 Estimated GFR > 60 ml/min 03/05/20 05:02 BUN/Creatinine Ratio 41 % 03/05/20 05:02 Glucose 89 mg/dL (75-100) 03/05/20 05:02 Calcium 7.6 mg/dL (8.4-10.2) L 03/05/20 05:02 Total Bilirubin 1.80 mg/dL (0.1-1.2) H 03/04/20 15:54 Direct Bilirubin 1.2 mg/dL (0-0.2) H 03/04/20 15:54 Indirect Bilirubin 0.6 mg/dL 03/04/20 15:54 AST 15 units/L (5-40) 03/04/20 15:54 ALT 8 units/L (7-56) 03/04/20 15:54 Alkaline Phosphatase 89 units/L (35-129) 03/04/20 15:54 Total Protein 6.8 g/dL (6.3-8.2) 03/04/20 15:54 Albumin 2.2 g/dL (3.9-5) L 03/04/20 15:54 Albumin/Globulin Ratio 0.5 % 03/04/20 15:54 Lipase 40 units/L (13-60) 03/04/20 15:54 Urine Color Letty (Yellow) 03/04/20 Unknown Urine Turbidity Clear (Clear) 03/04/20 Unknown Urine pH 5.0 (5.0-7.0) 03/04/20 Unknown Ur Specific [place] 1.024 (1.003-1.030) 03/04/20 Unknown Urine Protein <15 mg/dl mg/dL (Negative) 03/04/20 Unknown Urine Glucose (UA) Neg mg/dL (Negative) 03/04/20 Unknown Urine Ketones Neg mg/dL (Negative) 03/04/20 Unknown Urine Blood Neg (Negative) 03/04/20 Unknown Urine Nitrite Neg (Negative) 03/04/20 Unknown Urine Bilirubin Sm (Negative) 03/04/20 Unknown Urine Ictotest Negative (Negative) 03/04/20 Unknown Urine Urobilinogen 4.0 mg/dL (<2.0) 03/04/20 Unknown Ur Leukocyte Esterase Neg (Negative) 03/04/20 Unknown Urine WBC (Auto) 6.0 /HPF (0.0-6.0) 03/04/20 Unknown Urine RBC (Auto) 5.0 /HPF (0.0-6.0) 03/04/20 Unknown U Epithel Cells (Auto) 2.0 /HPF (0-13.0) 03/04/20 Unknown Hyaline Casts 1 /LPF 03/04/20 Unknown Urine Mucus Few /HPF 03/04/20 Unknown Microbiology: Microbiology 03/04/20 18:59 Peripheral/Venous Blood Culture - Preliminary NO GROWTH AFTER 24 HOURS 03/04/20 18:59 Peripheral/Venous Blood Culture - Preliminary NO GROWTH AFTER 24 HOURS Sim/IV: Voiding Method Urinal IV Catheter Type [Right Peripheral IV Forearm] IV Catheter Type [Right Peripheral IV Antecubital] Active Medications - Current Medications Current Medications: Generic Name Dose Route Start Last Admin Trade Name Freq PRN Reason Stop Dose Admin Acetaminophen 650 mg 03/04/20 18:41 Tylenol PO Q4H PRN Pain MILD(1-3)/Fever >100.5/WAHL Sodium Chloride 1,000 mls @ 125 mls/hr 03/04/20 18:45 03/06/20 03:31 Nacl 0.9% 1000 Ml IV 125 mls/hr DIRECT SANDIP Administration Morphine Sulfate 2 mg 03/04/20 23:52 03/05/20 04:28 Morphine IV 2 mg Q4H PRN Administration Pain, Moderate (4-6) Ondansetron HCl 4 mg 03/04/20 18:41 03/05/20 04:29 Zofran IV 4 mg Q8H PRN Administration Nausea And Vomiting Sodium Chloride 10 ml 03/04/20 22:00 03/06/20 12:05 Sodium Chloride Flush Syringe 10 Ml IV Not Given BID SANDIP Sodium Chloride 10 ml 03/04/20 18:41 Sodium Chloride Flush Syringe 10 Ml IV PRN PRN LINE FLUSH Nutrition/Malnutrition Assess - Dietary Evaluation Nutrition/Malnutrition Findings: Nutrition Notes Start: 03/05/20 13:53 Freq: Status: Active Protocol: Document 03/05/20 13:53 LP (Rec: 03/05/20 14:09 LP [id number]) Nutrition Notes 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 Per MD note, pt not eating well for 2 weeks . Pt states Nausea. Pt consumed lye when 5 yo and had multiple abdominal sx. Pt may need exp lap if not resolving . Burn Absent Trauma Absent GI Symptoms Nausea Difficulty In Swallowing Current % PO Negligible Minimum of two criteria No Energy Intake (severe) < or equal to 50% Estimated Energy Requirement > or equal to 5 days #1 Nutrition Diagnosis Inadequate oral intake Etiology SBO As Evidenced by Signs and Symptoms Pt with abdominal pain and nausea and poor appetite for 2 weeks Is patient on ventilator? No Is Patient Ambulatory and/or Out of Bed Yes REE-([facility]-ambulatory/OOB) [ [id number] [id number]] Calculation Used for Recommendations [facility] Additional Notes Protein needs are 58-69g (1-1. 2g/kg) Fluid needs are 1ml/kcal Nutrition Intervention Change Diet Order: advance diet as feasible Nutrition Support: May need TPN if unable to advance diet Goal #1 Advance diet as feasible Anticipated Discharge Needs: Unable to determine at this time Follow-Up By: 03/09/20 Additional Comments Follow for diet advancement and intakes, need for nutrition support
--- NOTE | 2020-03-07 08:49 | XRay Report ---
ABDOMEN 1 VIEW(S) INDICATION / CLINICAL INFORMATION: SBO. COMPARISON: One day prior FINDINGS: TUBES / LINES: Atypical position of the esophagogastric tube is similar to the priors. BOWEL GAS PATTERN: Dilated small bowel is again noted diffusely. FREE AIR / EXTRALUMINAL GAS: None seen. ADDITIONAL FINDINGS: No significant additional findings. IMPRESSION: 1. Persistent small bowel obstruction. 2. Persistent atypical position of the esophagogastric tube. This is unchanged since the exam from . Signer Name: Braxton Arce MD Signed: 03/07/2020 8:44 AM Workstation Name: [id number]
--- NOTE | 2020-03-07 12:10 | Progress Note ---
Assessment and Plan (1) Small bowel obstruction Current Visit: Yes Status: Acute Plan to address problem: Pt stable. Clinically he continues to improve. He is tolerating clear liquid diet, NG tube has been clamped x24 hours, without abdominal pain or N/V. Although his abdomen is distended and the x-ray is unchanged, showing dilated small bowel, the patient states that his abdomen is at baseline. He has had multiple bowel movements and is passing flatus. The small bowel distention on x-ray may take a while to resolve as this process was going on for about 2 weeks. Plan: 1. DC NGT 2. Continue clear liquids, would not advance at this time 3. GI prophylaxis 4. Encourage out of bed, ambulate We will follow along. Please call with any questions. Subjective Date of service: 03/07/20 Narrative: Patient seen and examined. He has no acute complaints. No nausea or vomiting. He is tolerating a clear liquid diet. NG tube has been clamped for 24 hours. Patient states he has had multiple bowel movements which have been loose and green. No hematochezia or melena. He states his abdomen is at baseline. Objective Vital Signs - 12hr 03/07/20 03/07/20 03/07/20 05:12 07:28 09:18 Temperature 98.6 F 99.6 F Pulse Rate 111 H 109 H Respiratory 18 18 Rate Blood Pressure 140/86 126/83 O2 Sat by Pulse 96 95 96 Oximetry - General physical appearance Narrative Exam: Gen.: Awake, alert, oriented 3. No apparent distress ENT: NGT in place, clamped. Trachea midline. No lymphadenopathy. No scleral icterus or conjunctival pallor CV: S1, S2 present Respiratory: No audible wheezes Abdomen: Soft, distended, nontender. Well-healed surgical scars. No rebound, rigidity, guarding Extremities: No clubbing, cyanosis, edema - Labs 03/04/20 15:54 03/05/20 05:02
--- NOTE | 2020-03-07 14:55 | Progress Note ---
Assessment and Plan - Patient Problems (1) Small bowel obstruction Current Visit: Yes Status: Acute Plan to address problem: NGT to LWIS, Surgery consulted, CT Abdomen/Pelvis reviewed, serial physical exam, patient symptoms are improving. Advance diet as tolerated. A.m abdominal x-ray. (2) EMERITA (acute kidney injury) Current Visit: Yes Status: Acute Plan to address problem: IVF resuscitation therapy, monitor uop q shift, repeat bmp in am to monitor se rum creatnine (3) Hypokalemia Current Visit: Yes Status: Acute Plan to address problem: repleted in ED, (4) Hyponatremia syndrome Current Visit: Yes Status: Acute Plan to address problem: IVF resuscitation therapy, repeat bmp in am. (5) DVT prophylaxis Current Visit: Yes Status: Acute Plan to address problem: SCD to BLE while in bed, Pt is ambulatory History Interval history: 54 YO Male HD #4 with SBO, EMERITA, ETOH Dependence. Patient acknowledges flatus, patient acknowledges bowel movement. Patient denies worsening symptoms. Patient acknowledges feeling more comfortable today. Patient denies fever, chills, chest pain, palpitations, shortness of breath. No reported nursing events. NG tube removed. Will encourage increased ambulation. Will not advance diet. Will reassess in a.m. Patient denies pain. Hospitalist Physical - Constitutional Vitals: Temp Pulse Resp BP Pulse Ox 99.4 F 102 H 18 122/88 97 03/07/20 11:32 03/07/20 11:32 03/07/20 11:32 03/07/20 11:32 03/07/20 11:32 General appearance: Present: mild distress - EENT Eyes: Present: PERRL, EOM intact ENT: hearing intact - Neck Neck: Present: supple - Respiratory Respiratory effort: normal Respiratory: bilateral: CTA - Cardiovascular Rhythm: regular Heart Sounds: Present: S1 & S2 - Extremities Extremities: no ischemia Peripheral Pulses: within normal limits - Abdominal General gastrointestinal: soft, non-tender, normal bowel sounds, no hepatomegaly, no splenomegaly, no mass, no hernia - Integumentary Integumentary: Present: clear, warm, dry - Psychiatric Psychiatric: appropriate mood/affect, cooperative - Neurologic Neurologic: CNII-XII intact Results - Labs CBC & Chem 7: 03/04/20 15:54 03/05/20 05:02 Labs: Laboratory Last Values WBC 9.5 K/mm3 (4.5-11.0) 03/04/20 15:54 RBC 3.65 M/mm3 (3.65-5.03) 03/04/20 15:54 Hgb 12.2 gm/dl (11.8-15.2) 03/04/20 15:54 Hct 35.2 % (35.5-45.6) L 03/04/20 15:54 MCV 96 fl (84-94) H 03/04/20 15:54 MCH 33 pg (28-32) H 03/04/20 15:54 MCHC 35 % (32-34) H 03/04/20 15:54 RDW 14.6 % (13.2-15.2) 03/04/20 15:54 Plt Count 365 K/mm3 (140-440) 03/04/20 15:54 Add Manual Diff Complete 03/04/20 15:54 Total Counted 100 03/04/20 15:54 Seg Neuts % (Manual) 76.0 % (40.0-70.0) H 03/04/20 15:54 Band Neutrophils % 0 % 03/04/20 15:54 Lymphocytes % (Manual) 13.0 % (13.4-35.0) L 03/04/20 15:54 Reactive Lymphs % (Man) 0 % 03/04/20 15:54 Monocytes % (Manual) 10.0 % (0.0-7.3) H 03/04/20 15:54 Eosinophils % (Manual) 1.0 % (0.0-4.3) 03/04/20 15:54 Basophils % (Manual) 0 % (0.0-1.8) 03/04/20 15:54 Metamyelocytes % 0 % 03/04/20 15:54 Myelocytes % 0 % 03/04/20 15:54 Promyelocytes % 0 % 03/04/20 15:54 Blast Cells % 0 % 03/04/20 15:54 Nucleated RBC % Not Reportable 03/04/20 15:54 Seg Neutrophils # Man 7.2 K/mm3 (1.8-7.7) 03/04/20 15:54 Band Neutrophils # 0.0 K/mm3 03/04/20 15:54 Lymphocytes # (Manual) 1.2 K/mm3 (1.2-5.4) 03/04/20 15:54 Abs React Lymphs (Man) 0.0 K/mm3 03/04/20 15:54 Monocytes # (Manual) 1.0 K/mm3 (0.0-0.8) H 03/04/20 15:54 Eosinophils # (Manual) 0.1 K/mm3 (0.0-0.4) 03/04/20 15:54 Basophils # (Manual) 0.0 K/mm3 (0.0-0.1) 03/04/20 15:54 Metamyelocytes # 0.0 K/mm3 03/04/20 15:54 Myelocytes # 0.0 K/mm3 03/04/20 15:54 Promyelocytes # 0.0 K/mm3 03/04/20 15:54 Blast Cells # 0.0 K/mm3 03/04/20 15:54 WBC Morphology Not Reportable 03/04/20 15:54 Hypersegmented Neuts Not Reportable 03/04/20 15:54 Hyposegmented Neuts Not Reportable 03/04/20 15:54 Hypogranular Neuts Not Reportable 03/04/20 15:54 Smudge Cells Not Reportable 03/04/20 15:54 Toxic Granulation Not Reportable 03/04/20 15:54 Toxic Vacuolation 1+ 03/04/20 15:54 Dohle Bodies Not Reportable 03/04/20 15:54 Pelger-Huet Anomaly Not Reportable 03/04/20 15:54 Dl Rods Not Reportable 03/04/20 15:54 Platelet Estimate Consistent w auto 03/04/20 15:54 Clumped Platelets Not Reportable 03/04/20 15:54 Plt Clumps, EDTA Not Reportable 03/04/20 15:54 Large Platelets Not Reportable 03/04/20 15:54 Giant Platelets Not Reportable 03/04/20 15:54 Platelet Satelliting Not Reportable 03/04/20 15:54 Plt Morphology Comment Not Reportable 03/04/20 15:54 RBC Morphology Not Reportable 03/04/20 15:54 Dimorphic RBCs Not Reportable 03/04/20 15:54 Polychromasia Not Reportable 03/04/20 15:54 Hypochromasia Not Reportable 03/04/20 15:54 Poikilocytosis Not Reportable 03/04/20 15:54 Anisocytosis Not Reportable 03/04/20 15:54 Microcytosis Not Reportable 03/04/20 15:54 Macrocytosis Not Reportable 03/04/20 15:54 Spherocytes Not Reportable 03/04/20 15:54 Pappenheimer Bodies Not Reportable 03/04/20 15:54 Sickle Cells Not Reportable 03/04/20 15:54 Target Cells Not Reportable 03/04/20 15:54 Tear Drop Cells Not Reportable 03/04/20 15:54 Ovalocytes Not Reportable 03/04/20 15:54 Helmet Cells Not Reportable 03/04/20 15:54 Chau-Rafael Gonzalez Bodies Not Reportable 03/04/20 15:54 Perdido Rings Not Reportable 03/04/20 15:54 Quinton Cells Not Reportable 03/04/20 15:54 Bite Cells Not Reportable 03/04/20 15:54 Crenated Cell Not Reportable 03/04/20 15:54 Elliptocytes Not Reportable 03/04/20 15:54 Acanthocytes (Spur) Not Reportable 03/04/20 15:54 Rouleaux Not Reportable 03/04/20 15:54 Hemoglobin C Crystals Not Reportable 03/04/20 15:54 Schistocytes Not Reportable 03/04/20 15:54 Malaria parasites Not Reportable 03/04/20 15:54 Hood Bodies Not Reportable 03/04/20 15:54 Hem Pathologist Commnt No 03/04/20 15:54 PT 14.4 Sec. (12.2-14.9) 03/04/20 15:54 INR 1.11 (0.87-1.13) 03/04/20 15:54 Sodium 135 mmol/L (137-145) L 03/05/20 05:02 Potassium 3.1 mmol/L (3.6-5.0) L 03/05/20 05:02 Chloride 89.7 mmol/L (98-107) L 03/05/20 05:02 Carbon Dioxide 29 mmol/L (22-30) 03/05/20 05:02 Anion Gap 19 mmol/L 03/05/20 05:02 BUN 41 mg/dL (9-20) H 03/05/20 05:02 Creatinine 1.0 mg/dL (0.8-1.3) 03/05/20 05:02 Estimated GFR > 60 ml/min 03/05/20 05:02 BUN/Creatinine Ratio 41 % 03/05/20 05:02 Glucose 89 mg/dL (75-100) 03/05/20 05:02 Calcium 7.6 mg/dL (8.4-10.2) L 03/05/20 05:02 Total Bilirubin 1.80 mg/dL (0.1-1.2) H 03/04/20 15:54 Direct Bilirubin 1.2 mg/dL (0-0.2) H 03/04/20 15:54 Indirect Bilirubin 0.6 mg/dL 03/04/20 15:54 AST 15 units/L (5-40) 03/04/20 15:54 ALT 8 units/L (7-56) 03/04/20 15:54 Alkaline Phosphatase 89 units/L (35-129) 03/04/20 15:54 Total Protein 6.8 g/dL (6.3-8.2) 03/04/20 15:54 Albumin 2.2 g/dL (3.9-5) L 03/04/20 15:54 Albumin/Globulin Ratio 0.5 % 03/04/20 15:54 Lipase 40 units/L (13-60) 03/04/20 15:54 Urine Color Letty (Yellow) 03/04/20 Unknown Urine Turbidity Clear (Clear) 03/04/20 Unknown Urine pH 5.0 (5.0-7.0) 03/04/20 Unknown Ur Specific [place] 1.024 (1.003-1.030) 03/04/20 Unknown Urine Protein <15 mg/dl mg/dL (Negative) 03/04/20 Unknown Urine Glucose (UA) Neg mg/dL (Negative) 03/04/20 Unknown Urine Ketones Neg mg/dL (Negative) 03/04/20 Unknown Urine Blood Neg (Negative) 03/04/20 Unknown Urine Nitrite Neg (Negative) 03/04/20 Unknown Urine Bilirubin Sm (Negative) 03/04/20 Unknown Urine Ictotest Negative (Negative) 03/04/20 Unknown Urine Urobilinogen 4.0 mg/dL (<2.0) 03/04/20 Unknown Ur Leukocyte Esterase Neg (Negative) 03/04/20 Unknown Urine WBC (Auto) 6.0 /HPF (0.0-6.0) 03/04/20 Unknown Urine RBC (Auto) 5.0 /HPF (0.0-6.0) 03/04/20 Unknown U Epithel Cells (Auto) 2.0 /HPF (0-13.0) 03/04/20 Unknown Hyaline Casts 1 /LPF 03/04/20 Unknown Urine Mucus Few /HPF 03/04/20 Unknown Microbiology: Microbiology 03/04/20 18:59 Peripheral/Venous Blood Culture - Preliminary NO GROWTH AFTER 48 HOURS 03/04/20 18:59 Peripheral/Venous Blood Culture - Preliminary NO GROWTH AFTER 48 HOURS Sim/IV: Voiding Method Toilet IV Catheter Type [Right Peripheral IV Forearm] IV Catheter Type [Right Peripheral IV Antecubital] Active Medications - Current Medications Current Medications: Generic Name Dose Route Start Last Admin Trade Name Freq PRN Reason Stop Dose Admin Acetaminophen 650 mg 03/04/20 18:41 Tylenol PO Q4H PRN Pain MILD(1-3)/Fever >100.5/WA[facility] Sodium Chloride 1,000 mls @ 125 mls/hr 03/04/20 18:45 03/06/20 03:31 Nacl 0.9% 1000 Ml IV 125 mls/hr DIRECT SANDIP Administration Morphine Sulfate 2 mg 03/04/20 23:52 03/05/20 04:28 Morphine IV 2 mg Q4H PRN Administration Pain, Moderate (4-6) Ondansetron HCl 4 mg 03/04/20 18:41 03/05/20 04:29 Zofran IV 4 mg Q8H PRN Administration Nausea And Vomiting Sodium Chloride 10 ml 03/04/20 22:00 03/07/20 09:54 Sodium Chloride Flush Syringe 10 Ml IV Not Given BID SANDIP Sodium Chloride 10 ml 03/04/20 18:41 Sodium Chloride Flush Syringe 10 Ml IV PRN PRN LINE FLUSH Nutrition/Malnutrition Assess - Dietary Evaluation Nutrition/Malnutrition Findings: Nutrition Notes Start: 03/05/20 13:53 Freq: Status: Active Protocol: Document 03/05/20 13:53 LP (Rec: 03/05/20 14:09 LP [id number]) Nutrition 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 Per MD note, pt not eating well for 2 weeks . Pt states Nausea. Pt consumed lye when 5 yo and had multiple abdominal sx. Pt may need exp lap if not resolving . Burn Absent Trauma Absent GI Symptoms Nausea Difficulty In Swallowing Current % PO Negligible Minimum of two criteria No Energy Intake (severe) < or equal to 50% Estimated Energy Requirement > or equal to 5 days #1 Nutrition Diagnosis Inadequate oral intake Etiology SBO As Evidenced by Signs and Symptoms Pt with abdominal pain and nausea and poor appetite for 2 weeks Is patient on ventilator? No Is Patient Ambulatory and/or Out of Bed Yes REE-([facility]-ambulatory/OOB) [ [id number] [id number]] Calculation Used for Recommendations [facility] Additional Notes Protein needs are 58-69g (1-1. 2g/kg) Fluid needs are 1ml/kcal Nutrition Intervention Change Diet Order: advance diet as feasible Nutrition Support: May need TPN if unable to advance diet Goal #1 Advance diet as feasible Anticipated Discharge Needs: Unable to determine at this time Follow-Up By: 03/09/20 Additional Comments Follow for diet advancement and intakes, need for nutrition support
[2020-03-07] MEDS: SODIUM CHLORIDE 0.9% 1000 ML 1,000 ML IV SCH (15:43)
[2020-03-08] MEDS: SODIUM CHLORIDE 0.9% 1000 ML 1,000 ML IV SCH (01:17)
[2020-03-08] MEDS: MORPHINE 2 MG/1 ML INJ IV PRN ×2 (01:21→11:55)
--- NOTE | 2020-03-08 13:07 | Discharge Summary ---
<REYNALDO WELLER - Last Filed: 03/08/20 14:10> Providers - Providers Date of Admission: 03/04/20 18:41 Attending physician: KELLEY LINN 03/04/20 18:33 Consult to Physician [CONS] Stat Comment: Consulting Provider: TRANG OHARA Physician Instructions: Reason For Exam: Small bowel obstruction Primary care physician: KEG INSPECTOR Hospitalization Condition: Stable Disposition: DC-30 STILL A PATIENT Exam - Constitutional Vitals: Temp Pulse Resp BP Pulse Ox 99.0 F 103 H 18 125/80 97 03/08/20 11:44 03/08/20 11:44 03/08/20 11:44 03/08/20 11:44 03/08/20 11:44 Plan Diet: other (stay on full liquid diet for 1 week and then advance to soft diet, low fiber) Follow up with: PRIMARY CARE, [Primary Care Provider] - 3-5 Days <KELLEY LINN - Last Filed: 03/09/20 13:19> Providers - Providers Date of Admission: 03/04/20 18:41 Attending physician: KELLEY LINN 03/04/20 18:33 Consult to Physician [CONS] Stat Comment: Consulting Provider: TRANG OHARA Physician Instructions: Reason For Exam: Small bowel obstruction Primary care physician: KEG INSPECTOR Hospitalization Pertinent studies: CT Abdomen/Pelvis: bowel obstruction Hospital course: 54 YO Male with Nicotine Dependence, ETOH Dependence, Dysphagia presented to ED for evaluation. Patient stated he had experienced abdominal pain over the past week 3 weeks with persistent symptoms over the same timeframe. Patient stated that pain is 6/10, constant, diffuse, nonradiating, without exacerbating or alleviating factors. Patient acknowledged nausea and diminished oral intake. Patient transported to [facility] via private vehicle for further care and evaluation of the aforementioned symptoms. Patient seen and evaluated in the emergency department. Lab and imaging studies reviewed. Patient underwent CT scan of the abdomen and pelvis which revealed evidence of a small bowel obstruction. Patient also found to have acute kidney injury with acute tubular necrosis, hyponatremia, and hypokalemia. Surgical team consulted in ED. Patient underwent nasogastric tube placement in the emergency department. Patient placed in observation status and admitted to surgical floor for further care due to increased risk of worsening symptoms. Patient convalesced well during hospital course with eventual return of flatus and bowel movement with nasogastric decompression. Patient medically optimized on the day of discharge. Patient knowledges flatus and bowel movement. Patient seen and evaluated prior to discharge but no significant new physical exam findings. Patient subsequently discharged home on clear liquid diet. Patient instructed to follow with primary care physician within 3 to 5 days for follow-up care and for age- appropriate screening test. 35 minutes dedicated to patient discharge and coordination of care. - Discharge Diagnoses (1) Small bowel obstruction Status: Acute (2) EMERITA (acute kidney injury) Status: Acute (3) Hypokalemia Status: Acute (4) Hyponatremia syndrome Status: Acute (5) DVT prophylaxis Status: Acute Core Measure Documentation - Palliative Care Palliative Care/ Comfort Measures: Not Applicable - Core Measures Any of the following diagnoses?: none Exam - Constitutional Vitals: Temp Pulse Resp BP Pulse Ox 98.5 F 101 H 20 125/81 96 03/07/20 21:55 03/07/20 21:55 03/07/20 21:55 03/07/20 21:55 03/07/20 21:55 General appearance: Present: cachectic - EENT Eyes: Present: PERRL ENT: hearing intact, clear oral mucosa - Neck Neck: Present: supple, normal ROM - Respiratory Respiratory effort: normal Respiratory: bilateral: CTA - Cardiovascular Heart Sounds: Present: S1 & S2. Absent: rub, click - Extremities Extremities: pulses symmetrical, No edema Peripheral Pulses: within normal limits - Abdominal General gastrointestinal: Present: soft, non-tender, non-distended, normal bowel sounds Male genitourinary: Present: normal - Integumentary Integumentary: Present: clear, warm, dry - Musculoskeletal Musculoskeletal: gait normal, strength equal bilaterally - Psychiatric Psychiatric: appropriate mood/affect, intact judgment & insight - Neurologic Neurologic: CNII-XII intact, moves all extremities Plan Activity: advance as tolerated Diet: clear liquids
--- NOTE | 2020-03-08 14:10 | Progress Note ---
Assessment and Plan (1) Small bowel obstruction Current Visit: Yes Status: Acute Plan to address problem: Pt stable. Clinically he continues to improve. He is tolerating clear liquid diet without abdominal pain or N/V. He continues to have multiple bowel movemen ts and is passing flatus. The small bowel distention on x-ray may take a while to resolve as this process was going on for about 2 weeks. Plan: 1. adv to full liquid diet - pt advised to continue on full liquids for next week and then slowly advance to soft, low residue diet 2. ok to dc from surgery standpoint Discussed plan with patient and Dr. Claros. Please call with any questions. Objective Vital Signs - 12hr 03/08/20 03/08/20 06:49 11:44 Temperature 99.3 F 99.0 F Pulse Rate 103 H Respiratory 20 18 Rate Blood Pressure 125/82 125/80 O2 Sat by Pulse 97 Oximetry - Labs 03/04/20 15:54 03/05/20 05:02
[2020-03-08 17:48] VITALS: BP 119/69
== END 2020-03-08 20:20 | disposition home or self-care (01) | DRG 388 ==
LOC: ED 13:24 → 3A 18:41 → 3B-SURG 19:13
PROVIDERS: ADMIT Internal Medicine; ATTEND Internal Medicine
DX: K56.609 Unspecified intestinal obstruction, unspecified as to partial versus complete obstruction (principal); N17.0 Acute kidney failure with tubular necrosis; E87.1 Hypo-osmolality and hyponatremia; F17.200 Nicotine dependence, unspecified, uncomplicated; R13.10 Dysphagia, unspecified; F10.20 Alcohol dependence, uncomplicated; E87.6 Hypokalemia; Z82.49 Family history of ischemic heart disease and other diseases of the circulatory system
CPT/HCPCS: 36415; 74018; 74177; 80048; 80076; 81001; 83690; 85007; 85025; 85610; 87040; 94760; 99406; G0378; J2270; J2405; J2543; J3480; J7030; Q9967

== ENCOUNTER 2020-03-12 23:45 | Emergency (ER) | payer SELFPAY ==
[2020-03-12] MEDS ORDERED: IPRATROPIUM 0.02% NEBU 2.5 ML IH ONE (23:55)
[2020-03-12] MEDS ORDERED: MAGNESIUM SULFATE 2 GM/50 ML BAG IV ONE (23:55)
[2020-03-12] MEDS ORDERED: methylPREDNISolone Sod Succinate 125 MG/2 ML INJ IV ONE (23:55)
[2020-03-12] MEDS ORDERED: ALBUTEROL 2.5 MG/3 ML NEBU IH ONE (23:55)
[2020-03-12] MEDS ORDERED: MINERAL OIL/PETROLATUM, WHITE OPHTH OINT 3.5 GM OU PRN (23:57)
[2020-03-12] MEDS ORDERED: LIP THERAPY VASELINE TP PRN (23:57)
[2020-03-13] MEDS ORDERED: NORepinephrine/NS 4 MG-250 ML 4 MG/250 ML BAG IV ONE (00:07)
[2020-03-13] MEDS ORDERED: SODIUM CHLORIDE 0.9% 1000 ML 2,000 ML ONE (00:07)
--- NOTE | 2020-03-13 00:15 | Emergency Department Report ---
ED CPR HPI - General Stated Complaint: CARDIAC ARREST Time Seen by Provider: 03/12/20 23:54 Source: family, EMS, old records reviewed Mode of arrival: Stretcher Limitations: Other (cardiac arrest unresponsive patient) - History of Present Illness Initial Comments: Chief complaint: Shortness of breath, cardiac arrest This is a 54-year-old male with history of asthma, COPD, nicotine dependence, alcohol dependence, dysphasia who presents in cardiac arrest. In front of family member, he went unresponsive after stating to family member that he could not breathe. Paramedics found patient unresponsive laying on the floor. He was not receiving CPR upon arrival. Upon arrival paramedics inserted Porfirio airway supraglottic device. He was treated with 3 doses of epinephrine, 1 dose of sodium bicarbonate. Upon arrival initial rhythm asystole. Patient received approximately 20 minutes of ACLS prior to arrival chest compressions and ACLS treatment prior to arrival MD Complaint: found unresponsive, stopped breathing Place: home Bystander CPR Performed: No Initial Findings in the Field: unresponsive, no respirations ROSC in the Field: No Associated Injuries: No Treatments Prior to Arrival: other airway device (Porfirio airway), epinephrine mgs # (3 doses epinephrine), sodium bicarbonate (1 dose sodium bicarbonate) - Related Data Allergies Allergy/AdvReac Type Severity Reaction Status Date / Time No Known Allergies Allergy Unverified 03/04/20 14:30 ED Review of Systems ROS: Stated complaint: CARDIAC ARREST Other details as noted in HPI Comment: Unobtainable due to pts medical conditions (Patient obtunded unresponsive) ED Past Medical Hx - Past Medical History Previous Medical History?: Yes Hx Congestive Heart Failure: No Hx Diabetes: No Hx Asthma: Yes Hx COPD: No Additional medical history: DYSPHAGIA - Surgical History Past Surgical History?: Yes Additional Surgical History: ABD - Family History Family history: hypertension - Social History Smoking Status: Current Every Day Smoker Substance Use Type: Alcohol ED Physical Exam - General Limitations: Altered Mental Status General appearance: other ( lifeless no spontaneous movement) - Head Head exam: Present: atraumatic, normocephalic - Eye Eye exam: Present: other (Fixed pupil dilated nonreactive) - ENT ENT exam: Present: mucous membranes dry, other (Pale mucosa without oropharyngeal lesions, normal tonsil size,) - Neck Neck exam: Present: normal inspection, other (No neck mass) - Respiratory Respiratory exam: Present: other (No spontaneous respirations, equal coarse b reath sounds with ventilation through supraglottic device) - Cardiovascular Cardiovascular Exam: Present: other (No auscultated cardiac sounds) - GI/Abdominal GI/Abdominal exam: Present: soft, distended, other (Large vertical central old surgical scar) - exam: Present: normal inspection - Extremities Exam Extremities exam: Present: normal inspection, other (No edema no deformity) - Neurological Exam Neurological exam: Present: other (Lifeless, unresponsive to pain or voice) - Psychiatric Psychiatric exam: Present: other (Lifeless unresponsive to pain or voice) - Skin Skin exam: Present: intact, pallor ED Course Vital Signs 03/13/20 00:18 Pulse Rate 95 H Blood Pressure 90/47 O2 Sat by Pulse 98 Oximetry - Intubation Time Out Performed: No (emergent intubation) Sedative: none Laryngoscope: Payton (Emergent intubation) Size: 4 ET Tube Size: 8 Tube Secured Depth (cm): 22 Tube Secured Location: lips Tube Placement Confirmation: visualized tube passing t, equal breath sounds bilat, confirmation by capnometr Patient Tolerated Procedure: well Intubation Complications: none ED Medical Decision Making - Lab Data Result diagrams: 03/13/20 00:14 03/13/20 00:14 - Medical Decision Making Mr. Dobbins initially informed family member that he has shortness of breath. EMS arrived and found the patient to be unresponsive asystole without pulse. Upon arrival return of spontaneous circulation was achieved. Supra glottic device was exchanged with endotracheal tube. I intubated the patient shortly after return of spontaneous circulation was achieved. 5 to 10 minutes after initial resuscitation, patient did not have palpable pulse, PEA. Patient received 1 dose of epinephrine and chest compressions. Return of spontaneous circulation was achieved. I immediately spoke with family members. Patient did have shortness of breath throughout the day. I had extensive conversation with family members. His sister is at the bedside. She is a registered nurse. Patient's mother also registered nurse with her both mother and sister agreed to withdrawal care. Patient would not have one in aggressive end-of-life measures. Patient then developed hypotension. Mechanical ventilation was discontinued. I turned off the monitor. Secondary monitor in place. Nephew and sister at the bedside. Sister signed DNR form to allow natural . Family members were at the bedside for the last hour of life. Time of 0103. confirmed with asystole and lack of pulse. Critical Care Time: Yes Critical care time in (mins) excluding proc time.: 40 Critical care attestation.: If time is entered above; I have spent that time in minutes in the direct care of this critically ill patient, excluding procedure time. 40 minutes of critical care time excluding procedures were used in the care of the patient. Upon patient's arrival, I was in the treatment room awaiting to treat patient and speak with EMS. While ACLS chest compressions continued, obtain history. Return of spontaneous circulation achieved after 1 dose of epinephrine and calcium bicarbonate. I immediately intubated patient replacing supraglottic device with secure endotracheal tube. ED Disposition Clinical Impression: Cardiac arrest Disposition: DC-20 Is pt being admited?: No Does the pt Need Aspirin: No Condition: Stable Time of Disposition: 01:03
[2020-03-13 00:26] VITALS: BP 90/47
[2020-03-13 00:30] LABS: Basophils % (Auto) 0.2 % (0.0-1.8); Eosinophils % (Auto) 0.7 % (0.0-4.3); Hematocrit 24.9 % (35.5-45.6); Lymphocytes # (Auto) 4.6 K/mm3 (1.2-5.4); Mean Corpuscular HGB Conc 32 % (32-34); Mean Corpuscular Volume 106 fl (84-94); Monocytes # (Auto) 0.3 K/mm3 (0.0-0.8); Monocytes % (Auto) 3.9 % (0.0-7.3); Red Blood Count 2.34 M/mm3 (3.65-5.03); Red Cell Distribution Width 16.4 % (13.2-15.2)
[2020-03-13 00:35] LABS: Lymphocytes % (Auto) 64.8 % (13.4-35.0); Platelet Count 71 K/mm3 (140-440)
[2020-03-13 00:57] LABS: Albumin 1.7 g/dL (3.9-5); Calcium 8.9 mg/dL (8.4-10.2)
--- NOTE | 2020-03-13 00:58 | XRay Report ---
CHEST 1 VIEW, 03/13/2020 12:07 AM CLINICAL INFORMATION/INDICATION: Endotracheal tube placement COMPARISON: No prior chest radiograph is available for comparison. FINDINGS: SUPPORT DEVICES: The endotracheal tube is present with tip approximately 2 cm above the level of the felicitas. HEART: The cardiac silhouette is upper limits of normal in size. LUNGS/PLEURA: Faint patchy bilateral mixed interstitial and airspace disease is noted bilaterally. Th ere is a suspected small right pleural effusion. No pneumothorax is visualized. ADDITIONAL FINDINGS: No additional acute findings. IMPRESSION: 1. Placement of endotracheal tube as above. 2. Faint mixed bilateral interstitial and airspace disease with suspected small right pleural effusio n. Signer Name: Nani White MD Signed: 03/13/2020 12:53 AM Workstation Name: [id number]
[2020-03-13] MEDS ORDERED: CALCIUM CHLORIDE 1,000 MG/10 ML SYRINGE IV ONE (15:54)
[2020-03-13] MEDS ORDERED: EPINEPHrine 1 MG/10 ML SYRINGE ONE (15:54)
== END 2020-03-13 04:45 ==
LOC: ED 23:45
DX: I46.9 Cardiac arrest, cause unspecified (principal); J45.909 Unspecified asthma, uncomplicated; F17.200 Nicotine dependence, unspecified, uncomplicated
CPT/HCPCS: 31500; 36415; 71045; 80053; 82962; 83880; 84484; 85025; 85379; 92950; 94002; 99291; J0171; J7030